=== PATIENT | female | born 1990 | race Caucasian/White ===

== ENCOUNTER 2018-07-31 17:00 | Emergency (ER) | payer OTHER ==
--- NOTE | 2018-07-31 17:12 | PDOC ---
Rapid Medical Evaluation Medical Evaluation: Allergies Allergy/AdvReac Type Severity Reaction Status Date / Time No Known Drug Allergies Allergy Verified 11/28/17 17:55 I have performed a brief in-person evaluation of this patient. The patient presents with a chief complaint of: Abdominal cramping and vaginal bleeding from yesterday Currently 3-4 weeks ; (hx of 2 miscarriages in the past) Has not yet seen her OB for this Concerns for possible miscarriage; also r/o ectopic Plan: CBC, BMP, UA, Bhcg, T&S, pelvic ultrasound Patient refused pain meds in triage The patient will proceed to the ED for further evaluation. 07/31/18 17:09
[2018-07-31 17:13] VITALS: BP 124/67; PULSE 80; TEMP 97.9; BMI 33.0
[2018-07-31 17:47] LABS: EOS % 1.6 % (0-4.5); HEMATOCRIT 37.5 % (32.4-45.2); HEMOGLOBIN 12.8 GM/dL (10.7-15.3); MCH 30.6 pg (25.7-33.7); MCHC 34.2 g/dl (32.0-36.0); MEAN CELL VOLUME 89.4 fl (80-96); MEAN PLT VOLUME 7.3 fl (7.5-11.1); MONO % 5.8 % (3.8-10.2); NEUT % 62.6 % (42.8-82.8); PLATELET COUNT 344 K/MM3 (134-434); RBC 4.19 M/mm3 (3.60-5.2); RDW 12.9 % (11.6-15.6); WHITE BLOOD COUNT 7.3 K/mm3 (4.0-10.0)
--- NOTE | 2018-07-31 17:52 | PDOC ---
Attending Attestation - HPI HPI: 07/31/18 19:04 The patient is a 27 year old 5 week female A2, with no significant past medical history, who presents to the emergency department with, 2 days of vaginal bleeding with clots. Patient experienced two prior miscarriages. Allergies: NKDA LMP: 06/20/2018 Rh: Negative - Physicial Exam PE: 07/31/18 20:20 Constitutional: Awake, alert, oriented. No acute distress. Head: Normocephalic. Atraumatic Eyes: PERRL. EOMI. Conjunctivae are not pale. ENT: Mucous membranes are moist and intact. Posterior pharynx without exudates or erythema. Uvula midline. Neck: Supple. Full ROM. No lymphadenopathy. Cardiovascular: Regular rate. Regular rhythm. S1, S2 regular. Distal pulses are 2+ and symmetric. Pulmonary/Chest: No evidence of respiratory distress. Clear to auscultation bilaterally No wheezing, rales or rhonchi. Abdominal: Soft and non-distended. There is no tenderness. No rebound, guarding or rigidity. No organomegaly. No palpable masses. Good bowel sounds. Back: No CVA tenderness. Pelvic: Refer to resident exam. Musculoskeletal: No edema. No cyanosis. No clubbing. Full range of motion in all extremities. No calf tenderness. Radial/pedal pulses are intact and 2+ bilaterally Skin: Skin is warm and dry. No petechiae. No purpura. Neurological: Alert and oriented to person, place, and time. Cranial nerves II -XII are grossly intact. Normal speech. Strength is grossly symmetric. No sensory deficits. Psychiatric: Good eye contact. Normal interaction, affect and behavior. <Chadwick Gomez - Last Filed: 07/31/18 20:20> - Resident Resident Name: Reny Lepe - ED Attending Attestation I have performed the following: I have examined & evaluated the patient, The case was reviewed & discussed with the resident, I agree w/resident's findings & plan, Exceptions are as noted - Medical Decision Making 07/31/18 17:51 I, Dr. Kasey Mishra, DO, attest that this document has been prepared under my direction and personally reviewed by me in its entirety. I further attest, that it accurately reflects all work, treatment, procedures and medical decision -making performed by me. 07/31/18 19:40 a/p: 27yo female with vaginal bleeding -last menstrual cycle was 06/20 -bleeding and cramping yesterday - concern for passing clots and cramping -2 recent miscarriages in the last 10 months -pt has not seen a COMPRESSED GAS TESTER during this -concern for early preg vs threatened ab vs complete ab -will send labs, tvus -hx of Rh-, will need rhogam 07/31/18 19:42 beta 5.7 no iup on ultrasound, suspect complete ab over early preg will need repeat beta hcg in 48 hours ua pending will give rhogam 07/31/18 20:41 given rhogam ua negative will return to the ED for repeat beta in 48 hours stable for d/c to home <Kasey Mishra - Last Filed: 07/31/18 20:42> *DC/Admit/Observation/Transfer <Chadwick Gomez - Last Filed: 07/31/18 20:20> - Discharge Dispostion Decision to Admit order: No <Kasey Mishra - Last Filed: 07/31/18 20:42> Diagnosis at time of Disposition: Complete - Discharge Dispostion Disposition: HOME Condition at time of disposition: Stable - Referrals Referrals: Cj Power MD [Staff Physician] - - Patient Instructions Printed Discharge Instructions: DI for Threatened Additional Instructions: Please return to the ED for a repeat beta HCG in 48 hours. Please follow up with the pit tanner for further eval of your bleeding. Please return to the ED with any further concerns or complaints. Attestations - Attestations 07/31/18 19:04 Documentation prepared by Chadwick Gomez, acting as medical superintendent for Kasey Mishra DO. <Chadwick Gomez - Last Filed: 07/31/18 20:20>
[2018-07-31 18:12] LABS: ANION GAP 6 MMOL/L (8-16); BLOOD UREA NITROGEN 18 mg/dL (7-18); CALCIUM 9.1 mg/dL (8.5-10.1); CHLORIDE 104 mmol/L (98-107); CO2 27 mmol/L (21-32); CREATININE 0.9 mg/dL (0.55-1.3); GLUCOSE,RANDOM 100 mg/dL (74-106); POTASSIUM 3.7 mmol/L (3.5-5.1); SODIUM 138 mmol/L (136-145)
--- NOTE | 2018-07-31 18:13 | PDOC ---
History of Present Illness - General Chief Complaint: Vaginal Bleeding Stated Complaint: VAGINAL BLEEDING/4 WKS Time Seen by Provider: 07/31/18 17:21 Past History - Past Medical History Allergies/Adverse Reactions: Allergies Allergy/AdvReac Type Severity Reaction Status Date / Time No Known Drug Allergies Allergy Verified 07/31/18 17:10 Anemia: Yes Asthma: No Cancer: No Cardiac Disorders: No CVA: No COPD: No CHF: No DVT: No Dementia: No Diabetes: No GI Disorders: No Disorders: No HTN: No Hypercholesterolemia: No Liver Disease: No Seizures: No Thyroid Disease: No - Surgical History Abdominal Surgery: Yes (OOPHERECTOMY 2008/partial 2012) Appendectomy: No Cardiac Surgery: No Cholecystectomy: No Lung Surgery: No Neurologic Surgery: No Orthopedic Surgery: No - Reproductive History (#): 3 Para: 0 Therapeutic (s) & number: Yes (2 elective) Spontaneous : 2 - Suicide/Smoking/Psychosocial Hx Smoking Status: No Smoking History: Never smoked Number of Cigarettes Smoked Daily: 0 Hx Alcohol Use: Yes (OCCAS) Drug/Substance Use Hx: No Substance Use Type: None Hx Substance Use Treatment: No *Physical Exam - Vital Signs Last Vital Signs Temp Pulse Resp BP Pulse Ox 97.9 F 80 18 124/67 99 07/31/18 17:11 07/31/18 17:11 07/31/18 17:11 07/31/18 17:11 07/31/18 17:11 ED Treatment Course - LABORATORY CBC & Chemistry Diagram: 07/31/18 17:42 07/31/18 17:42 - ADDITIONAL ORDERS Additional order review: 07/31/18 17:42 RBC 4.19 MCV 89.4 MCHC 34.2 RDW 12.9 MPV 7.3 L Neutrophils % 62.6 Lymphocytes % 29.0 D Monocytes % 5.8 Eosinophils % 1.6 Basophils % 1.0 Medical Decision Making - Medical Decision Making 07/31/18 18:07 Patient is a 27 year old female (Rho negative, 2 spontaneous abortions), with past medical history of ovarian cyst s/p ? oophorectomy, presented with vaginal bleeding with passage of clots accompanied by abdominal pain that started yesterday. LMP was 06/20. Patient reported positive test twice. Denies fevers, chills, headache, dizziness, chest pain, palpitations, SOB , constipation, diarrhea, urinary symptoms. General: awake, alert, oriented, not in acute distress Head: no signs of head trauma HEENT: PERRLA, EOMI, sclerae anicteric, no nasal discharge, moist mucous membranes Neck: soft, supple, trachea midline, without LAD Lung: clear to auscultation bilaterally Heart: regular rate and rhythm, S1/S2 normal, no m,r,g Abdomen: soft, nontender, nondistended, NABS Speculum exam: blood pooling along vaginal vault, unable to clearly visualize cervix due to blood pooling IE: no cervical/adnexal tenderness, cervix soft, long, open DDx includes but not limited to , ectopic , fibroids CBC, CMp B-hCG TVS
[2018-07-31] MEDS ORDERED: RHO(D) IMMUNE GLOBULIN 1,500 UNIT DISP.SYRIN IM ONE (19:30)
[2018-07-31 20:13] LABS: URINE APPEARANCE SLCLOUDY; URINE BILIRUBIN NEGATIVE (<2.0 mg/dL); URINE COLOR YELLOW; URINE GLUCOSE (UA) NEGATIVE (NEGATIVE); URINE KETONE NEGATIVE (NEGATIVE); URINE LEUK ESTERASE NEGATIVE (NEGATIVE); URINE NITRITE NEGATIVE (NEGATIVE); URINE PROTEIN NEGATIVE (NEGATIVE); URINE UROBILINOGEN NEGATIVE mg/dL (0.2-1.0)
[2018-07-31 20:57] LABS: EPI CELLS FEW /HPF (FEW); URINE MUCUS RARE
--- NOTE | 2018-08-01 07:53 | PDOC ---
*Physical Exam - Vital Signs Last Vital Signs Temp Pulse Resp BP Pulse Ox 97.9 F 80 18 124/67 99 07/31/18 17:11 07/31/18 17:11 07/31/18 17:11 07/31/18 17:11 07/31/18 17:11 - Physical Exam Comments: 08/01/18 07:53 I received sign out from Dr. Casanova ED Treatment Course - LABORATORY CBC & Chemistry Diagram: 07/31/18 17:42 07/31/18 17:42 - ADDITIONAL ORDERS Additional order review: Laboratory Results 07/31/18 19:28 Urine Color Yellow Urine Appearance Slcloudy Urine pH 6.0 Ur Specific [place] 1.026 Urine Protein Negative Urine Glucose (UA) Negative Urine Ketones Negative Urine Blood 3+ H Urine Nitrite Negative Urine Bilirubin Negative Urine Urobilinogen Negative Ur Leukocyte Esterase Negative Urine WBC (Auto) 28 Urine RBC (Auto) 151 Ur Epithelial Cells Few Urine Mucus Rare 07/31/18 17:42 RBC 4.19 MCV 89.4 MCHC 34.2 RDW 12.9 MPV 7.3 L Neutrophils % 62.6 Lymphocytes % 29.0 D Monocytes % 5.8 Eosinophils % 1.6 Basophils % 1.0 - Medications Given in the ED: ED Medications Discontinued Medications Generic Name Dose Route Start Last Admin Trade Name Kera PRN Reason Stop Dose Admin Rho Immune Globulin 50 unit 07/31/18 19:30 07/31/18 20:49 Rhogam Plus IM 07/31/18 19:31 50 unit ONCE ONE Administration *DC/Admit/Observation/Transfer Diagnosis at time of Disposition: Complete - Discharge Dispostion Disposition: HOME Condition at time of disposition: Stable - Referrals Referrals: Cj Power MD [Staff Physician] - - Patient Instructions Printed Discharge Instructions: DI for Threatened Additional Instructions: Please return to the ED for a repeat beta HCG in 48 hours. Please follow up with the kitchen cleaner for further eval of your bleeding. Please return to the ED with any further concerns or complaints. - Post Discharge Activity
== END 2018-07-31 21:01 | disposition home or self-care (01) ==
LOC: JER 17:00
PROC: 3E0234Z Introduction of Serum, Toxoid and Vaccine into Muscle, Percutaneous Approach (ICD-10-PCS; principal; 2018-07-31)
DX: O26.891 Other specified pregnancy related conditions, first trimester (principal); O03.9 Complete or unspecified spontaneous abortion without complication; O36.0910 Maternal care for other rhesus isoimmunization, first trimester, not applicable or unspecified; Z3A.01 Less than 8 weeks gestation of pregnancy
CPT/HCPCS: 36415; 76817-TC; 80048; 81003; 81015; 84702; 85025; 86999; 87086; 99282-25; J1561

== ENCOUNTER 2019-04-19 17:53 | Inpatient (IN) | payer BC, OTHER ==
--- NOTE | 2019-04-19 18:14 | PDOC ---
Rapid Medical Evaluation Time Seen by Provider: 04/19/19 18:11 Medical Evaluation: Allergies Allergy/AdvReac Type Severity Reaction Status Date / Time No Known Drug Allergies Allergy Verified 07/31/18 17:10 04/19/19 18:11 HPI: c/o pain and swelling s/p liposuction and "Citizen [place] Butt Lift" c/o of B LE swelling had suurgery done in [place] PE: No gross deficits ORDERS: B LE doppler, labs Discharge Disposition - Diagnosis Pain - Referrals - Patient Instructions - Post Discharge Activity
[2019-04-19 18:18] VITALS: BMI 31.9
[2019-04-19 20:10] LABS: BASO % 0.6 % (0-2.0); EOS % 1.8 % (0-4.5); HEMOGLOBIN 7.4 GM/dL (10.7-15.3); LYMPH % 17.9 % (8-40); MCH 31.7 pg (25.7-33.7); MCHC 33.9 g/dl (32.0-36.0); MEAN CELL VOLUME 93.7 fl (80-96); MEAN PLT VOLUME 6.9 fl (7.5-11.1); MONO % 6.5 % (3.8-10.2); NEUT % 73.2 % (42.8-82.8); PLATELET COUNT 419 K/MM3 (134-434); RBC 2.35 M/mm3 (3.60-5.2); WHITE BLOOD COUNT 9.8 K/mm3 (4.0-10.0)
[2019-04-19 20:38] LABS: ALBUMIN 2.9 g/dl (3.4-5.0); BILIRUBIN,TOTAL 0.5 mg/dL (0.2-1); BLOOD UREA NITROGEN 12.1 mg/dL (7-18); CALCIUM 8.6 mg/dL (8.5-10.1); CREATININE 0.5 mg/dL (0.55-1.3); POTASSIUM 3.8 mmol/L (3.5-5.1); TOT PROT 5.8 g/dl (6.4-8.2)
[2019-04-19] MEDS ORDERED: SODIUM CHLORIDE 1,000 ML IV STA (21:20)
[2019-04-19] MEDS ORDERED: ACETAMINOPHEN 1000 MG/100 ML VIAL (NON FORMULARY) IVPB ONE (21:20)
[2019-04-19] MEDS ORDERED: VANCOMYCIN 1,250 MG in DEXTROSE 5%-WATER - 250 ML IVPB ONE (22:22)
[2019-04-19] MEDS ORDERED: PIPERACILLIN/TAZOB 3.375 GM 3.375 GM in DEXTROSE 5%-WATER - 50 ML IVPB ONE (22:23)
[2019-04-19 22:33] LABS: INR 0.97 (0.83-1.09); PROTHROMBIN TIME (PATIENT) 11.5 SEC (9.7-13.0)
[2019-04-19] MEDS ORDERED: morphine CARPU-JECT 4 MG/1 ML DISP.SYRIN IVPUSH ONE (22:34)
[2019-04-19] MEDS ORDERED: morphine SULFATE 4 MG/ML VIAL ONE (22:41)
[2019-04-19] MEDS ORDERED: ONDANSETRON 4 MG/2 ML VIAL ONE (22:50)
--- NOTE | 2019-04-19 23:15 | PDOC ---
History of Present Illness - General Chief Complaint: Wound Stated Complaint: INFECTION TO ABD REGION Time Seen by Provider: 04/19/19 18:11 History Source: Patient Exam Limitations: No Limitations - History of Present Illness Initial Comments: Pt is a 28 yo F, with PMH of ovarian cysts, who presents with pain and swelling to her buttocks, discharge to her drain sites, and vaginal discharge s/p [place] butt-lift, abdominal liposuction, and fat transfer done 04/13/2019 in [place]. Pt states she was discharged on the same day as the surgery, and was started on PO keflex 500 BID and PO xarelto. Pt flew back to [place] today. Pt states since that time she has noted bloody discharge in the drains (2 in lower abdomen draining; 2 posterior which have healed), and began noticing foul- smelling yellow drainage from the anterior incision/drain sites and from her vagina. Pt denies any fevers/chills, headache, vision changes, syncope, chest pain, palpitations, SOB, nausea/vomiting, abdominal pain, urinary symptoms, diarrhea/constipation, or leg swelling. Allergies: NKDA Social: Pt denies any cigarette, alcohol, or drug use. Pt denies any recent travel or sick contacts. Surgical: ovarian cyst removal; recent plastic surgery as above. Family: no relevant history. 04/19/19 23:18 Surgeon: Dr. Everett ([place]): [phone] 04/19/19 23:53 Past History - Travel Traveled outside of the country in the last 30 days: No Close contact w/someone who was outside of country & ill: No - Past Medical History Allergies/Adverse Reactions: Allergies Allergy/AdvReac Type Severity Reaction Status Date / Time No Known Drug Allergies Allergy Verified 04/19/19 18:12 Home Medications: Ambulatory Orders Ascorbic Acid [Vitamin C -] 1,000 mg PO DAILY 04/19/19 Cephalexin Monohydrate [Keflex -] 500 mg PO BID 04/19/19 Ferrous Sulfate [Feosol] 325 mg PO TID 04/19/19 Hydrocodone/Acetaminophen [[place] 5-325 Tablet] 1 each PO ASDIR PRN 04/19/19 Rivaroxaban [Xarelto -] 10 mg PO DAILY 04/19/19 Anemia: Yes Asthma: No Cancer: No Cardiac Disorders: No CVA: No COPD: No CHF: No DVT: No Dementia: No Diabetes: No GI Disorders: No Disorders: No HTN: No Hypercholesterolemia: No Liver Disease: No Seizures: No Thyroid Disease: No - Surgical History Abdominal Surgery: Yes (OOPHERECTOMY 2008/partial 2012) Appendectomy: No Cardiac Surgery: No Cholecystectomy: No Lung Surgery: No Neurologic Surgery: No Orthopedic Surgery: No - Reproductive History (#): 3 Para: 0 Therapeutic (s) & number: Yes (2 elective) Spontaneous : 2 - Suicide/Smoking/Psychosocial Hx Smoking Status: No Smoking History: Never smoked Number of Cigarettes Smoked Daily: 0 Hx Alcohol Use: Yes (OCCAS) Drug/Substance Use Hx: No Substance Use Type: None Hx Substance Use Treatment: No Review of Systems - Review of Systems Able to Perform ROS?: Yes Is the patient limited Kazakh proficient: No Constitutional: Yes: Weight Stable. No: Chills, Diaphoresis, Fever, Loss of Appetite, Malaise, Weakness HEENTM: No: Blurred Vision, Double Vision, Nose Congestion, Throat Pain, Throat Swelling Respiratory: No: Cough, Orthopnea, Shortness of Breath Cardiac (ROS): No: Chest Pain, Edema, Irregular Heart Rate, Lightheadedness, Palpitations, Syncope, Chest Tightness ABD/GI: No: Constipated, Diarrhea, Nausea, Poor Appetite, Poor Fluid Intake, Vomiting, Abdominal cramping : No: Burning, Dysuria, Frequency, Pain, Urgency Musculoskeletal: Yes: See HPI, Muscle Pain. No: Back Pain, Joint Pain, Muscle Weakness Integumentary: Yes: Bruising (around incision sites with swelling). No: Rash Neurological: No: Numbness, Paresthesia, Weakness, Unsteady Gait, Dizziness Psychiatric: No: Sleep Pattern Change, Change in Appetite Endocrine: No: Increased Urine, Change in Weight Hematologic/Lymphatic: No: Anemia, Blood Clots, Easy Bleeding, Easy Bruising All Other Systems: Reviewed and Negative *Physical Exam - Vital Signs Last Vital Signs Temp Pulse Resp BP Pulse Ox 98.4 F 121 H 20 124/71 99 04/19/19 18:16 04/19/19 18:16 04/19/19 18:16 04/19/19 18:16 04/19/19 18:16 - Physical Exam Comments: Pt tachycardic, BP stable, pt afebrile. Pt appears very uncomfortable, difficulty with lying flat on the bed. Overweight body habitus. Pt alert and oriented x3. 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 No midline spinal tenderness, step-offs, or crepitus. Head normocephalic, atraumatic. Eyes PERRLA, EOMI. Oropharynx without erythema or exudates, no LAD b/l. No nasal congestion, hearing intact. Clear heart sounds, S1/S2, no JVD, b/l pedal edema, or heart murmur. Clear lung sounds, no respiratory distress, wheezes, crackles, or accessory muscle use. TTP around incision sites. 2 small incisions anterior lower abdomen (1 RLQ, 1 LLQ, with well-healing around drains, small serous drainage). 2 small incisions in lower back (1 L lower back, 1 R lower back, well healed, no drainage). No rebound, no guarding. Abdomen soft, non-distended, and with normoactive bowel sounds. Vaginal exam with physiologic discharge. No blood in the canal. Skin taut around hips and b/l thighs. Mild ecchymoses. Skin otherwise without jaundice or rash. 04/19/19 23:32 ED Treatment Course - LABORATORY CBC & Chemistry Diagram: 04/19/19 19:30 04/19/19 19:30 - ADDITIONAL ORDERS Additional order review: Laboratory Results 04/19/19 04/19/19 04/19/19 21:56 20:15 19:30 PT with INR 11.50 INR 0.97 Sodium 139 Potassium 3.8 Chloride 103 Carbon Dioxide 32 Anion Gap 4 L BUN 12.1 Creatinine 0.5 L Est GFR (CKD-EPI)AfAm 150.52 Est GFR (CKD-EPI)NonAf 129.87 Random Glucose 92 Calcium 8.6 Total Bilirubin 0.5 AST 49 H ALT 63 H Alkaline Phosphatase 49 Total Protein 5.8 L Albumin 2.9 L Urine HCG, Qual Negative 04/19/19 19:30 RBC 2.35 L MCV 93.7 MCHC 33.9 RDW 13.0 MPV 6.9 L Neutrophils % 73.2 Lymphocytes % 17.9 D Monocytes % 6.5 Eosinophils % 1.8 Basophils % 0.6 - RADIOLOGY Radiology Studies Ordered: Category Date Time Status ABDOMEN & PELVIS CT WITH CONTR [CT] Stat CT Scan 04/19/19 22:03 Ordered - Medications Given in the ED: ED Medications Discontinued Medications Generic Name Dose Route Start Last Admin Trade Name Kera PRN Reason Stop Dose Admin Acetaminophen 1,000 mg 04/19/19 21:20 04/19/19 22:14 Ofirmev Injection - IVPB 04/19/19 21:21 1,000 mg ONCE ONE Administration Sodium Chloride 1,000 mls @ 1,000 mls/hr 04/19/19 21:20 04/19/19 22:13 Normal Saline - IV 04/19/19 22:19 1,000 mls/hr ASDIR STA Administration Morphine Sulfate 4 mg 04/19/19 22:34 04/19/19 23:03 Morphine Injection - IVPUSH 04/19/19 22:35 4 mg ONCE ONE Administration Medical Decision Making - Medical Decision Making Pt was seen at bedside, also will be seen by attending Dr. Valencia. Pt presenting with complaints of drainage from her vagina and incision sites s/p plastic surgery. Vaginal exam showed no active discharge at this time. Will evaluate with CT scan of abdomen/pelvis, LE doppler, and transvaginal US to evaluate for uterine rupture/perforation vs DVT. Sent pre-op labs. Provided IV vanc, zosyn, ofirmev, 1 L IV NS, 4 mg IV morphine, and 4 mg IV zofran for improvement of pain, nausea, and abx coverage. Will continue to reassess pt and monitor for symptomatic improvement. ECG: sinus tachycardia, intervals WNL (HR 126, VT 128, QRS 66, QTc 457). No TWIs or significant ST segment changes. No significant changes from prior ECG. Pt taken for CT and US scans. 04/19/19 23:41 Pt endorsed to night team 04/19/19 23:53 *DC/Admit/Observation/Transfer Diagnosis at time of Disposition: Pain - Referrals Referrals: Kendall Jose [Primary Care Provider] - - Patient Instructions - Post Discharge Activity
[2019-04-19 23:26] LABS: URINE APPEARANCE CLEAR; URINE BILIRUBIN NEGATIVE (NEGATIVE); URINE COLOR YELLOW; URINE GLUCOSE (UA) NEGATIVE (NEGATIVE); URINE KETONE NEGATIVE (NEGATIVE); URINE LEUK ESTERASE NEGATIVE (NEGATIVE); URINE NITRITE NEGATIVE (NEGATIVE); URINE PROTEIN NEGATIVE (NEGATIVE); URINE UROBILINOGEN 0.2 mg/dL (0.2-1.0)
[2019-04-19] MEDS ORDERED: ONDANSETRON 4 MG/2 ML VIAL IVPUSH ONE (23:42)
--- NOTE | 2019-04-19 23:45 | PDOC ---
Documentation entered by Artie Castaneda SCRIBE, acting as scribe for Griselda Valencia DO. Griselda Valencia DO: This documentation has been prepared by the Leonel brown Elijah, SCRIBE, under my direction and personally reviewed by me in its entirety. I confirm that the documentation accurately reflects all work , treatment, procedures, and medical decision making performed by me. Attending Attestation - Resident Resident Name: Marta Fink - ED Attending Attestation I have performed the following: I have examined & evaluated the patient, The case was reviewed & discussed with the resident, I agree w/resident's findings & plan - HPI HPI: 04/19/19 22:04 Patient is a 28 year old female with a significant past medical history of ovarian cyst who presents to the ED with complications s/p 'English Butt Lift ' that was done on April 13. Patient noticed pain and odd color drainage at the TALIA drain. Patient noticed a smell at the site where she had pain which prompted the visit to the ED. Allergies: NKA PCP: Dr. Jose - Physicial Exam PE: 04/19/19 22:08 Agree with Resident's exam. - Medical Decision Making 04/19/19 23:14 28-year-old female status post liposuction and English but left now with increasing pain and vaginal odor Plan for CT scan of the abdomen and pelvis with IV contrast as well as pelvic ultrasound to evaluate for possible uterine rupture versus seromas versus abscess versus hematoma Antibiotics administered in the emergency department Plan for when necessary plastics consultation and likely admission
[2019-04-20] MEDS ORDERED: PIPERACILLIN/TAZOB 3.375 GM 3.375 GM/50 ML BAG IVPB ONE (00:28)
[2019-04-20] MEDS ORDERED: VANCOMYCIN 500 MG VIAL (RESTRICTED TO ID ONLY) ONE (00:30)
--- NOTE | 2019-04-20 00:58 | PDOC ---
*Physical Exam - Vital Signs Last Vital Signs Temp Pulse Resp BP Pulse Ox 98.4 F 121 H 20 124/71 99 04/19/19 18:16 04/19/19 18:16 04/19/19 18:16 04/19/19 18:16 04/19/19 18:16 ED Treatment Course - LABORATORY CBC & Chemistry Diagram: 04/19/19 19:30 04/19/19 19:30 - ADDITIONAL ORDERS Additional order review: Laboratory Results 04/19/19 04/19/19 04/19/19 23:00 21:56 21:56 PT with INR 11.50 INR 0.97 Sodium Potassium Chloride Carbon Dioxide Anion Gap BUN Creatinine Est GFR (CKD-EPI)AfAm Est GFR (CKD-EPI)NonAf Random Glucose Calcium Total Bilirubin AST ALT Alkaline Phosphatase Total Protein Albumin Urine Color Yellow Urine Appearance Clear Urine pH 6.0 Ur Specific [place] 1.011 Urine Protein Negative Urine Glucose (UA) Negative Urine Ketones Negative Urine Blood Negative Urine Nitrite Negative Urine Bilirubin Negative Urine Urobilinogen 0.2 Ur Leukocyte Esterase Negative Urine HCG, Qual Blood Type O NEGATIVE Antibody Screen Negative Crossmatch See Detail 04/19/19 04/19/19 20:15 19:30 PT with INR INR Sodium 139 Potassium 3.8 Chloride 103 Carbon Dioxide 32 Anion Gap 4 L BUN 12.1 Creatinine 0.5 L Est GFR (CKD-EPI)AfAm 150.52 Est GFR (CKD-EPI)NonAf 129.87 Random Glucose 92 Calcium 8.6 Total Bilirubin 0.5 AST 49 H ALT 63 H Alkaline Phosphatase 49 Total Protein 5.8 L Albumin 2.9 L Urine Color Urine Appearance Urine pH Ur Specific [place] Urine Protein Urine Glucose (UA) Urine Ketones Urine Blood Urine Nitrite Urine Bilirubin Urine Urobilinogen Ur Leukocyte Esterase Urine HCG, Qual Negative Blood Type Antibody Screen Crossmatch 04/19/19 19:30 RBC 2.35 L MCV 93.7 MCHC 33.9 RDW 13.0 MPV 6.9 L Neutrophils % 73.2 Lymphocytes % 17.9 D Monocytes % 6.5 Eosinophils % 1.8 Basophils % 0.6 - Medications Given in the ED: ED Medications Discontinued Medications Generic Name Dose Route Start Last Admin Trade Name Freq PRN Reason Stop Dose Admin Acetaminophen 1,000 mg 04/19/19 21:20 04/19/19 22:14 Ofirmev Injection - IVPB 04/19/19 21:21 1,000 mg ONCE ONE Administration Sodium Chloride 1,000 mls @ 1,000 mls/hr 04/19/19 21:20 04/19/19 22:13 Normal Saline - IV 04/19/19 22:19 1,000 mls/hr ASDIR STA Administration Vancomycin HCl 1,250 mg/ 250 mls @ 166.667 mls/hr 04/19/19 22:22 04/20/19 00: 48 Dextrose IVPB 04/19/19 23:51 166.667 mls/hr ONCE ONE Administration Protocol Piperacillin Sod/Tazobactam 50 mls @ 100 mls/hr 04/19/19 22:23 04/20/19 00:36 Sod 3.375 gm/ Dextrose IVPB 04/19/19 22:52 100 mls/hr ONCE ONE Administration Protocol Morphine Sulfate 4 mg 04/19/19 22:34 04/19/19 23:03 Morphine Injection - IVPUSH 04/19/19 22:35 4 mg ONCE ONE Administration Ondansetron HCl 4 mg 04/19/19 23:42 04/19/19 22:52 Zofran Injection IVPUSH 04/19/19 23:43 4 mg NOW ONE Administration Medical Decision Making - Medical Decision Making 04/20/19 00:57 Scattered areas of subcutaneous emphysema mid and lower back, probably related to recent surgery. Subcutaneous edema. Two percutaneous drainage catheters entering left and right lower quadrants, respectively, and each terminating in right upper quadrant abdominal wall. No abscess or focal fluid collection. No bowel obstruction, colitis, diverticulitis, or free air. Normal appendix. Unremarkable pancreas, kidneys and gallbladder. Hepatomegaly. 2.7 cm right ovarian cyst. Small simple physiologic free fluid right adnexa and right posterior cul-de-sac. Possible small nabothian cyst in cervix versus fibroid in lower uterine segment. Vagina somewhat obscured by artifact but grossly unremarkable 04/20/19 03:04 Negative TVUS [facility] called to transfer patient. Dr. Raman, plastic surgeon at [facility] refused transfer, stating that the patient is fine from a surgical standpoint, nothing to do/. Will keep the patient in our ED until morning, ED OBS admit to the hospitalist team and have her be seen by our plastic surgeon in the morning. *DC/Admit/Observation/Transfer Diagnosis at time of Disposition: Pain - Discharge Dispostion Decision to Admit order: Yes - Referrals Referrals: Kendall Jose [Primary Care Provider] - - Patient Instructions - Post Discharge Activity
--- NOTE | 2019-04-20 03:29 | PDOC ---
*Physical Exam - Vital Signs Last Vital Signs Temp Pulse Resp BP Pulse Ox 98.4 F 121 H 20 124/71 99 04/19/19 18:16 04/19/19 18:16 04/19/19 18:16 04/19/19 18:16 04/19/19 18:16 ED Treatment Course - LABORATORY CBC & Chemistry Diagram: 04/21/19 06:35 04/21/19 06:35 - ADDITIONAL ORDERS Additional order review: Laboratory Results 04/19/19 04/19/19 04/19/19 23:00 21:56 21:56 PT with INR 11.50 INR 0.97 Sodium Potassium Chloride Carbon Dioxide Anion Gap BUN Creatinine Est GFR (CKD-EPI)AfAm Est GFR (CKD-EPI)NonAf Random Glucose Calcium Total Bilirubin AST ALT Alkaline Phosphatase Total Protein Albumin Urine Color Yellow Urine Appearance Clear Urine pH 6.0 Ur Specific [place] 1.011 Urine Protein Negative Urine Glucose (UA) Negative Urine Ketones Negative Urine Blood Negative Urine Nitrite Negative Urine Bilirubin Negative Urine Urobilinogen 0.2 Ur Leukocyte Esterase Negative Urine HCG, Qual Blood Type O NEGATIVE Antibody Screen Negative Crossmatch See Detail 04/19/19 04/19/19 20:15 19:30 PT with INR INR Sodium 139 Potassium 3.8 Chloride 103 Carbon Dioxide 32 Anion Gap 4 L BUN 12.1 Creatinine 0.5 L Est GFR (CKD-EPI)AfAm 150.52 Est GFR (CKD-EPI)NonAf 129.87 Random Glucose 92 Calcium 8.6 Total Bilirubin 0.5 AST 49 H ALT 63 H Alkaline Phosphatase 49 Total Protein 5.8 L Albumin 2.9 L Urine Color Urine Appearance Urine pH Ur Specific [place] Urine Protein Urine Glucose (UA) Urine Ketones Urine Blood Urine Nitrite Urine Bilirubin Urine Urobilinogen Ur Leukocyte Esterase Urine HCG, Qual Negative Blood Type Antibody Screen Crossmatch 04/19/19 19:30 RBC 2.35 L MCV 93.7 MCHC 33.9 RDW 13.0 MPV 6.9 L Neutrophils % 73.2 Lymphocytes % 17.9 D Monocytes % 6.5 Eosinophils % 1.8 Basophils % 0.6 - RADIOLOGY Radiology Studies Ordered: Category Date Time Status TRANSVAGINAL ULTRASOUND US [US] Stat Ultrasound 04/20/19 22:03 Taken - Medications Given in the ED: ED Medications Discontinued Medications Generic Name Dose Route Start Last Admin Trade Name Freq PRN Reason Stop Dose Admin Acetaminophen 1,000 mg 08/12/19 21:20 04/19/19 22:14 Ofirmev Injection - IVPB 04/19/19 21:21 1,000 mg ONCE ONE Administration Sodium Chloride 1,000 mls @ 1,000 mls/hr 04/19/19 21:20 04/19/19 22:13 Normal Saline - IV 04/19/19 22:19 1,000 mls/hr ASDIR STA Administration Vancomycin HCl 1,250 mg/ 250 mls @ 166.667 mls/hr 04/19/19 22:22 04/20/19 00: 48 Dextrose IVPB 04/19/19 23:51 166.667 mls/hr ONCE ONE Administration Protocol Piperacillin Sod/Tazobactam 50 mls @ 100 mls/hr 04/19/19 22:23 04/20/19 00:36 Sod 3.375 gm/ Dextrose IVPB 04/19/19 22:52 100 mls/hr ONCE ONE Administration Protocol Morphine Sulfate 4 mg 04/19/19 22:34 04/19/19 23:03 Morphine Injection - IVPUSH 04/19/19 22:35 4 mg ONCE ONE Administration Ondansetron HCl 4 mg 04/19/19 23:42 04/19/19 22:52 Zofran Injection IVPUSH 04/19/19 23:43 4 mg NOW ONE Administration *DC/Admit/Observation/Transfer Diagnosis at time of Disposition: Intractable pain Anemia Qualifiers: Anemia type: unspecified type Qualified Code(s): D64.9 - Anemia, unspecified - Discharge Dispostion Disposition: AGAINST MEDICAL ADVICE Condition at time of disposition: Guarded Decision to Admit order: Yes - Referrals - Patient Instructions - Post Discharge Activity
[2019-04-20] MEDS ORDERED: SODIUM CHLORIDE 0.9% 500 ML INFUS.BAG IV ONE (03:30)
[2019-04-20 04:21] LABS: BASO % 0.6 % (0-2.0); EOS % 1.5 % (0-4.5); LYMPH % 20.9 % (8-40); MCH 31.4 pg (25.7-33.7); MCHC 33.3 g/dl (32.0-36.0); MEAN CELL VOLUME 94.5 fl (80-96); MEAN PLT VOLUME 7.1 fl (7.5-11.1); MONO % 4.5 % (3.8-10.2); NEUT % 72.5 % (42.8-82.8); PLATELET COUNT 399 K/MM3 (134-434); RBC 2.16 M/mm3 (3.60-5.2); RDW 13.4 % (11.6-15.6)
[2019-04-20 04:38] LABS: HEMATOCRIT 20.4 % (32.4-45.2); HEMOGLOBIN 6.8 GM/dL (10.7-15.3)
[2019-04-20] MEDS ORDERED: oxyCODONE HCL 5 MG TABLET PO PRN (05:08)
[2019-04-20] MEDS ORDERED: ACETAMINOPHEN 325 MG TABLET (FP) PO PRN ×2 (05:08→12:29)
--- NOTE | 2019-04-20 05:10 | HP ---
CHIEF COMPLAINT:c/o pain and swelling s/p liposuction and "Burmese Butt Lift" c/o of B LE swelling had suurgery done in [place] PCP: Dr. Madrid HISTORY OF PRESENT ILLNESS: 28 yo F, with PMH of ovarian cysts,Anemia who arrived to ED with pain and swelling to her buttocks, discharge to her drain sites, and vaginal discharge s/p Burmese butt-lift, abdominal liposuction, and fat transfer done 04/13/2019 in [place]. Patient states she was discharged on the same day as the surgery, and was started on PO keflex 500 BID and PO xarelto. Pt flew back to [place] today. Pt states since that time she has noted bloody discharge in the drains (2 in lower abdomen draining; 2 posterior which have healed), and began noticing foul-smelling yellow drainage from the anterior incision/drain sites and from her vagina. Pt denies any fevers/chills, headache, vision changes, syncope, chest pain, palpitations, SOB, nausea/vomiting, abdominal pain, urinary symptoms, diarrhea/ constipation, or leg swelling. ER course was notable for: ECG: sinus tachycardia, intervals WNL Negative TVUS CT scan of abdomen/pelvis Provided in ED: IV vanc, zosyn, ofirmev, 1 L IV NS, 4 mg IV morphine, and [address] Raman, plastic surgeon at [facility] refused transfer, stable from sx standpoint follow up plastic suregry in AM Recent Travel: [place] No travel outside the country PAST MEDICAL HISTORY: Anemia PAST SURGICAL HISTORY: OOPHERECTOMY 2008/partial 2012; recent plastic surgery (s /p Burmese butt-lift, abdominal liposuction) - Reproductive History (#): 3 Para: 0 Therapeutic (s) & number: Yes (2 elective) Spontaneous : 2 Social History: Smoking:No Alcohol:No Drugs: No Family History: Father ( HTN, HLD, DM), Mother ( thyroid Ca) Allergies: No Known Drug Allergies Allergy (Verified 04/20/19 03:18) HOME MEDICATIONS: Home Medications Medication Instructions Recorded Ascorbic Acid [Vitamin C -] 1,000 mg PO DAILY 04/19/19 Cephalexin Monohydrate [Keflex -] 500 mg PO BID 04/19/19 Ferrous Sulfate [Feosol] 325 mg PO TID 04/19/19 Hydrocodone/Acetaminophen [[place] 1 each PO ASDIR PRN 04/19/19 5-325 Tablet] Rivaroxaban [Xarelto -] 10 mg PO DAILY 04/19/19 REVIEW OF SYSTEMS Constitutional: YES: discomfort, pain with movement, changing positions HEENT: No: Blurred Vision, Double Vision, Nose Congestion, Throat Pain, Throat Swelling Respiratory: No: Cough, Orthopnea, Shortness of Breath Cardiac : No: Chest Pain, Edema, Irregular Heart Rate, Lightheadedness, Palpitations, Syncope, Chest Tightness GI: No: Constipated, Diarrhea, Nausea, Poor Appetite, Poor Fluid Intake, Vomiting, Abdominal cramping : No: Burning, Dysuria, Frequency, Pain, Urgency Musculoskeletal: No: Back Pain, Joint Pain, Muscle Weakness Integumentary: Yes: Bruising (around incision sites with swelling). No: Rash Neurological: No: Numbness, Paresthesia, Weakness, Unsteady Gait, Dizziness Psychiatric: No: Sleep Pattern Change, Change in Appetite Hematologic/Lymphatic: No: Blood Clots, Easy Bleeding, Easy Bruising PHYSICAL EXAMINATION Vital Signs - 24 hr 04/19/19 18:16 Temperature 98.4 F Pulse Rate 121 H Respiratory 20 Rate Blood Pressure 124/71 O2 Sat by Pulse 99 Oximetry (%) GENERAL: Awake, alert, appears uncomfortable, difficulty with lying flat, turning while on the bed. HEENT: NC/AT, EOMI, PERRLA, No JVD LUNGS: Breath sounds equal, clear to auscultation bilaterally. No wheezes, and no crackles. No accessory muscle use. HEART: Regular rate and rhythm, normal S1 and S2 without murmur, rub or gallop. ABDOMEN: TTP around incision sites. 2 small incisions anterior lower abdomen, 2 small incisions in lower back; No rebound, no guarding. Abdomen soft, non- distended, and with normoactive bowel sounds. : no vaginal discharge MUSCULOSKELETAL: Normal range of motion at all joints. No bony deformities or tenderness. NEUROLOGICAL: Cranial nerves II-XII intact. Normal speech. Normal gait. PSYCHIATRIC: Cooperative. Good eye contact. Appropriate mood and affect. SKIN: Warm, dry; Skin taut around hips and b/l thighs. Mild ecchymoses Laboratory Results - last 24 hr 04/19/19 04/19/19 04/19/19 19:30 19:30 20:15 WBC 9.8 RBC 2.35 L Hgb 7.4 L Hct 22.0 L D MCV 93.7 MCH 31.7 MCHC 33.9 RDW 13.0 Plt Count 419 D MPV 6.9 L Absolute Neuts (auto) 7.2 Neutrophils % 73.2 Lymphocytes % 17.9 D Monocytes % 6.5 Eosinophils % 1.8 Basophils % 0.6 Nucleated RBC % 0 PT with INR INR Sodium 139 Potassium 3.8 Chloride 103 Carbon Dioxide 32 Anion Gap 4 L BUN 12.1 Creatinine 0.5 L Est GFR (CKD-EPI)AfAm 150.52 Est GFR (CKD-EPI)NonAf 129.87 Random Glucose 92 Calcium 8.6 Total Bilirubin 0.5 AST 49 H ALT 63 H Alkaline Phosphatase 49 Total Protein 5.8 L Albumin 2.9 L Urine Color Urine Appearance Urine pH Ur Specific [place] Urine Protein Urine Glucose (UA) Urine Ketones Urine Blood Urine Nitrite Urine Bilirubin Urine Urobilinogen Ur Leukocyte Esterase Urine HCG, Qual Negative Blood Type Antibody Screen Crossmatch 04/19/19 04/19/19 04/19/19 21:56 21:56 23:00 WBC RBC Hgb Hct MCV MCH MCHC RDW Plt Count MPV Absolute Neuts (auto) Neutrophils % Lymphocytes % Monocytes % Eosinophils % Basophils % Nucleated RBC % PT with INR 11.50 INR 0.97 Sodium Potassium Chloride Carbon Dioxide Anion Gap BUN Creatinine Est GFR (CKD-EPI)AfAm Est GFR (CKD-EPI)NonAf Random Glucose Calcium Total Bilirubin AST ALT Alkaline Phosphatase Total Protein Albumin Urine Color Yellow Urine Appearance Clear Urine pH 6.0 Ur Specific [place] 1.011 Urine Protein Negative Urine Glucose (UA) Negative Urine Ketones Negative Urine Blood Negative Urine Nitrite Negative Urine Bilirubin Negative Urine Urobilinogen 0.2 Ur Leukocyte Esterase Negative Urine HCG, Qual Blood Type O NEGATIVE Antibody Screen Negative Crossmatch See Detail ASSESSMENT/PLAN: 28 year old female with a significant past medical history of ovarian cyst, Anemia who presents to the ED with complications s/p 'Burmese Butt Lift' that was done on April 13. Arrived to ED due to increase pain and vaginal odd , change of color drainage at the TALIA drain. #s/p Burmese butt-lift, abdominal liposuction # pain # Anemia -Abd/pelvis CT:no abscessor focal fluid collection.no bowel obstruction, colitis , diverticulitis, or free air. Normal appendix. 2.7 cm right ovarian cyst. Small simple physiologic free fluid right adnexa and right posterior cul-de-sac. Possible small nabothian cyst in cervix versus fibroid in lower uterine segment. - Negative TVUS - follow up plastic sx in AM - Continue with pain management - start clindamycin 300 mg IV q 6hours for 7 days - will need blood transfusion; Monitor H/H - follow up STI panel - follow up urine, wound cx Problem List - Problem (1) S/P cosmetic plastic surgery Code(s): Z98.890 - OTHER SPECIFIED POSTPROCEDURAL STATES (2) Encounter for cosmetic surgery following healed injury or operation Code(s): Z42.8 - ENCNTR FOR OTH PLAST/RECNST SURG FOL MED PROC OR HEAL INJURY (3) Pain at surgical site Code(s): G89.18 - OTHER ACUTE POSTPROCEDURAL PAIN (4) Anemia Code(s): D64.9 - ANEMIA, UNSPECIFIED Qualifiers: Anemia type: unspecified type Qualified Code(s): D64.9 - Anemia, unspecified (5) Intractable pain Code(s): R52 - PAIN, UNSPECIFIED Visit type - Emergency Visit Emergency Visit: Yes ED Registration Date: 04/20/19 Care time: The patient presented to the Emergency Department on the above date and was hospitalized for further evaluation of their emergent condition. - New Patient This patient is new to me today: Yes Date on this admission: 04/20/19 - Critical Care Critical Care patient: No
[2019-04-20] MEDS ORDERED: PT OWN MED DRAWER 7, Y5N ONE ×3 (08:35→15:17)
[2019-04-20] MEDS: CLINDAMYCIN 300 MG PREMIX IVPB 300 MG/50 ML BAG IVPB SCH ×2 (09:00→15:21)
[2019-04-20 10:39] LABS: ANISOCYTOSIS 1+; MACROCYTOSIS 1+; PLATELET ESTIMATE NORMAL
[2019-04-20 10:44] LABS: MACROCYTOSIS 1+; OVALOCYTE 1+; PLATELET ESTIMATE NORMAL
[2019-04-20] MEDS: LACTOBACILLUS ACIDOPHILUS 1 TABLET PO SCH (10:59)
--- NOTE | 2019-04-20 11:25 | EKG ---
Test Reason : Blood Pressure : / mmHG Vent. Rate : 126 BPM Atrial Rate : 126 BPM P-R Int : 128 ms QRS Dur : 066 ms QT Int : 316 ms P-R-T Axes : 065 072 045 degrees QTc Int : 457 ms SINUS TACHYCARDIA OTHERWISE NORMAL ECG WHEN COMPARED WITH ECG OF 07-MAY-2013 13:00, VENT. RATE HAS INCREASED BY 63 BPM Confirmed by Henri Do MD ([id number]) on 04/20/2019 11:25:01 AM Referred By: Confirmed By:Henri Do MD
--- NOTE | 2019-04-20 11:41 | PN ---
Progress Note, Physician Chief Complaint: Anemia BLLE Wound infection s/p abdominoplasty History of Present Illness: NAD c/o of incisional surgical pain 2 abdominal drains draining moderate amount of serosanguineous fluid Received IV Vanco+ zosyn yesterday afebrile CT abd no abscess, just lot of post op edema Awaiting plastic surgery consult Drop in H/H this AM PRBC ordered yesterday was not given to the patient until this AM at 10 am - Current Medication List Current Medications: Active Medications Acetaminophen (Tylenol -) 650 mg PO Q4H PRN PRN Reason: PAIN OR FEVER Clindamycin Phosphate (Cleocin 300 Mg Premix Ivpb) 300 mg in 50 mls @ 100 mls/ hr IVPB Q6H-IV LARS Lactobacillus Acidophilus (Bacid -) 1 tab PO DAILY LARS Oxycodone HCl (Roxicodone -) 5 mg PO Q6H PRN PRN Reason: PAIN LEVEL 6-10 Polyethylene Glycol (Miralax (For Daily Use) -) 17 gm PO DAILY LARS - Objective Vital Signs: Vital Signs Temperature 97.9 F 04/20/19 06:27 Pulse Rate 112 H 04/20/19 06:27 Respiratory Rate 20 04/20/19 06:27 Blood Pressure 102/51 L 04/20/19 06:27 O2 Sat by Pulse Oximetry (%) 97 04/20/19 05:58 Constitutional: Yes: Well Nourished, No Distress, Calm Cardiovascular: Yes: Regular Rate and Rhythm Respiratory: Yes: Regular Gastrointestinal: Yes: Soft, Hypoactive Bowel Sounds, Tenderness (diffuse) Genitourinary: Yes: WNL Musculoskeletal: Yes: Muscle Weakness Extremities: Yes: WNL Edema: Yes Edema: LLE: 1+, RLE: 1+ Peripheral Pulses WNL: Yes Neurological: Yes: Alert, Oriented Psychiatric: Yes: Alert, Oriented Labs: CBC, BMP 04/20/19 04:04 04/19/19 19:30 INR, PTT INR 0.97 (0.83-1.09) 04/19/19 21:56 Problem List - Problems (1) Lower extremity edema Assessment/Plan: -U/S doppler negative -Elevate BLLE -albumin is low -will add prosource bid Code(s): R60.0 - LOCALIZED EDEMA (2) Anemia Assessment/Plan: -States she was anemic post op as well, she saw some blood when wiping after her last BM, however, she was straining to go to the bathroom due to constipation -Likely 2/2 to post op blood loss -2 U PRBC today -monitor labs closely, repeat in AM -No signs of overt bleeding -Check Iron, thyroid, B12, and stool OB Code(s): D64.9 - ANEMIA, UNSPECIFIED Qualifiers: Anemia type: unspecified type Qualified Code(s): D64.9 - Anemia, unspecified (3) S/P cosmetic plastic surgery Assessment/Plan: -Drains intact, no signs of infection at the site -continue to monitor -start clear liquid diet+ ensure -pt refused to turn over to examine the back Code(s): Z98.890 - OTHER SPECIFIED POSTPROCEDURAL STATES (4) Constipation Assessment/Plan: -Miralax daily -Avoid constipation Code(s): K59.00 - CONSTIPATION, UNSPECIFIED (5) Elevated liver enzymes Assessment/Plan: -mildly elevated -2/2 to acute infection? -monitor trend -CT abd/pelvis negative for any liver disease Code(s): R74.8 - ABNORMAL LEVELS OF OTHER SERUM ENZYMES Assessment/Plan See problem list Spoke to Dr Roel Camacho (Plastic Surgery in [place]) at to update on pt's condition. Secondary contact is TELLY Harkins at
[2019-04-20] MEDS: POLYETHYLENE GLYCOL 3350 119 GM BTL PO SCH (11:52)
[2019-04-20] MEDS ORDERED: traMADol HCL 50 MG TABLET PO PRN (12:24)
[2019-04-20] MEDS ORDERED: HYDROmorphone HCl 2 MG/ML VIAL IVPUSH PRN (12:26)
[2019-04-20] MEDS ORDERED: ONDANSETRON 4 MG/2 ML VIAL IVPUSH PRN (14:43)
--- NOTE | 2019-04-20 15:49 | PN ---
Progress Note (short form) - Note Progress Note: ID consult dictated imp/reccd 28 yo female s/p plastic surgery 04/13 in [place] she had liposuction and a congolese butt lift she was discharged on 04/16 from their care and took the airplane back on 04/18 she has not had any fever but has had increasing pain there was some drainage from arround one of the anterior ann drain sites she feels everything is tight and very painful received vancomycin and zosyn in ED last night now on clindamycin awaiting plastic surgery evaluation - there is no obvious cellulitis at any of the trochar sites or fluctuance to suggest abscess also ann fluid is serous- no signs of purulence will treat with clindamycin/ceftriaxone for skin coverage while awaiting plastic surgery guidance f/u cultures anemia- for transfusion Problem List - Problems (1) Pain at surgical site Code(s): G89.18 - OTHER ACUTE POSTPROCEDURAL PAIN (2) Anemia Code(s): D64.9 - ANEMIA, UNSPECIFIED Qualifiers: Anemia type: unspecified type Qualified Code(s): D64.9 - Anemia, unspecified
[2019-04-20 17:05] LABS: ALBUMIN 2.4 g/dl (3.4-5.0); BILIRUBIN,TOTAL 0.9 mg/dL (0.2-1); CALCIUM 7.7 mg/dL (8.5-10.1); CREATININE 0.5 mg/dL (0.55-1.3); POTASSIUM 3.9 mmol/L (3.5-5.1); TOT PROT 5.2 g/dl (6.4-8.2)
[2019-04-20] MEDS: AMINO ACIDS/PROTEIN HYDROLYS 30 ML LIQUID.PKT PO SCH (18:12)
--- NOTE | 2019-04-20 18:28 | CONSULT ---
Consult Consult Specialty:: Plastic Surgery - Past Medical History ...LMP: 04/12/19 ...: No Additional Medical History: none. surgical hx--laparotomy, salpingo-ophorectomy - Alcohol/Substance Use Hx Alcohol Use: Yes (OCCAS) - Smoking History Smoking history: Never smoked Aproximately how many cigarettes per day: 0 Home Medications - Allergies Allergies/Adverse Reactions: Allergies Allergy/AdvReac Type Severity Reaction Status Date / Time No Known Drug Allergies Allergy Verified 04/20/19 03:18 - Home Medications Home Medications: Ambulatory Orders Ascorbic Acid [Vitamin C -] 1,000 mg PO DAILY 04/19/19 Cephalexin Monohydrate [Keflex -] 500 mg PO BID 04/19/19 Ferrous Sulfate [Feosol] 325 mg PO TID 04/19/19 Hydrocodone/Acetaminophen [[place] 5-325 Tablet] 1 each PO ASDIR PRN 04/19/19 Rivaroxaban [Xarelto -] 10 mg PO DAILY 04/19/19 Physical Exam Vital Signs: Vital Signs Temperature 99.1 F 04/20/19 14:45 Pulse Rate 100 H 04/20/19 14:45 Respiratory Rate 18 04/20/19 14:45 Blood Pressure 105/59 L 04/20/19 14:45 O2 Sat by Pulse Oximetry (%) 99 04/20/19 09:00 Labs: CBC, BMP 04/20/19 04:04 04/20/19 15:15 Assessment/Plan 28 year old woman one week s/p circumferential liposuction with fat transfer to buttocks- patient states that she had about 4 liters of fat transferred. She presents with pain in the abdomen and back. Her HCT on admission was only 22 and she is now receiving a second unit of PRBC's. Physical exam shows multiple ecchymotic areas as expected. Two Jean Paul-Mullen drains are exiting the lower abdomen and it its difficult to see where they are directed. Patient states they have been draining each about 50cc per day. The buttocks are swollen but without pain or erythema, although very warm to touch. The abdomen and back are sore and irregular to touch with obvious irregularities. It is difficult to notice any subcutaneous fluid pockets although this is the sensation the patient describes. I am unfamiliar with the use of TALIA drains after liposuction and I suggest leaving them in for 24 hours while monitoring the patient. If drainage is minimal then I suggest removing these tomorrow. I would also suggest antibiotics. There is no no suggestion of blood within TALIA drains, and ecchymosis is not beyond expected as an explanation of the presumed blood loss. The procedure was a week ago so it's unlikely that the low HCT is only a result of surgical losses. If there is continued decreasing of HCT then a bleeding source must be identified. I would encourage ambulation with assistance as well, and application of RANDEE stockings.
--- NOTE | 2019-04-20 19:06 | CONS ---
DATE OF CONSULTATION: DATE OF DICTATION: 04/20/2019 INFECTIOUS DISEASE CONSULTATION REQUESTING PHYSICIAN: Tasha Madrid M.D. CONSULTING PHYSICIAN: Claudia Lin M.D. HISTORY OF PRESENT ILLNESS: This is a 28-year-old woman who is status post plastic surgery in April 13 in [place]. She had liposuction and a Estonian butt lift. She was discharged on April 16 from the care of the surgeons there, and she took the airplane back on April 18. She came back with 2 drains, which she was supposed to continue to keep in until the urine output diminished, at which time she was to remove them. As well she reported she was told she had a small opening in her back where she was supposed to continue to drain from. She has not had any fevers, but after coming back on the airplane she started having progressive discomfort. Everything is very tight and painful. She noted some drainage from around one of the anterior TALIA drains. There were no fevers, there were no chills. She went to see a massage person because she was told she needed a massage to help with the stiffness that was accompanying the procedure. The massage person sent her to the ER. She reported that she noted a foul smell from her vagina as well as from her armpits. She received vancomycin and Zosyn in the ER last night and now on clindamycin awaiting plastic surgery evaluation. PAST MEDICAL HISTORY: Notable for anemia. SURGICAL HISTORY: Oophorectomy in 2008 and a plastic surgery. SOCIAL HISTORY: She is . She has 1 child. She is employed. FAMILY HISTORY: Notable for hypertension, hyperlipidemia. Mother with thyroid cancer. HABITS: There is no history of any cigarette, alcohol, or substance use. REVIEW OF SYSTEMS: There is no fever or chills. She has no headaches. She has no chest pain. She has no shortness of breath. She has had no nausea, vomiting, urinary symptoms, diarrhea or constipation. Of note, her medications include vitamin C. She was discharged on Keflex which she was taking 500 p.o. b.i.d., ferrous sulfate 325 mg t.i.d., and Xarelto. Review of systems is as per HPI. PHYSICAL EXAMINATION: GENERAL: She is awake and alert. She has had no fevers. VITAL SIGNS: Temperature is 99.1 orally, pulse is 100, blood pressure 105/59, respiratory rate 18. She is saturating 99% on room air. HEENT: Normocephalic. Eyes are anicteric. NECK: Supple. LUNGS: Clear to auscultation. HEART: Tachycardic. SKIN: She has sites underneath her breasts that are healed. She has got trochar sites on her abdomen that are all healed as well as on her buttocks. There is no obvious erythema. There is no obvious fluctuance. She has 2 TALIA drains that have clear red fluid in them. There is no evidence of any purulence, and there is no associated odor. LABORATORY: White count is 10,000, hemoglobin is 6.8, platelets are 399. INR is normal. BUN and creatinine are 10 and 0.5. Urinalysis is negative. Urine test is negative. The urine culture and Gram stain of the cavity site where she noted some drainage is pending. Gram stain shows no organisms or polycytes. She had a CAT scan of her abdomen and pelvis done in the emergency room that noted extensive subcutaneous edema with air bubbles and 2 drainage catheters and a right ovarian cyst. There is no evidence of any abscess. She had duplex of her legs that were negative for DVT and a transvaginal sonogram that showed a small right ovarian cyst. IMPRESSION: 1. In summary, this is a young lady status post plastic surgery, awaiting plastic surgery evaluation. There is no obvious cellulitis at any of the trocar sites or fluctuance to suggest abscess. TALIA fluid is also serous. No signs of purulence. Will treat with clindamycin and ceftriaxone for skin coverage while awaiting plastic surgery guidance. Follow up cultures. 2. Anemia, she is scheduled for transfusion. CLAUDIA LIN M.D. [id number]
[2019-04-20] MEDS: CLINDAMYCIN 600MG PREMIX IVPB 600 MG/50 ML BAG IVPB SCH (21:12)
[2019-04-20] MEDS ORDERED: DEXTROSE 5%-WATER 100 ML IVPB ONE (21:32)
[2019-04-20] MEDS: CEFTRIAXONE 2 GM in DEXTROSE 5%-WATER 100 ML IVPB SCH (22:31)
[2019-04-21] MEDS: CLINDAMYCIN 600MG PREMIX IVPB 600 MG/50 ML BAG IVPB SCH ×3 (02:39→20:32)
[2019-04-21 07:29] LABS: BASO % 0.3 % (0-2.0); EOS % 2.1 % (0-4.5); HEMOGLOBIN 8.7 GM/dL (10.7-15.3); LYMPH % 15.2 % (8-40); MCH 31.7 pg (25.7-33.7); MCHC 34.8 g/dl (32.0-36.0); MEAN CELL VOLUME 91.2 fl (80-96); MEAN PLT VOLUME 6.9 fl (7.5-11.1); NEUT % 76.4 % (42.8-82.8); PLATELET COUNT 362 K/MM3 (134-434); RBC 2.75 M/mm3 (3.60-5.2); RDW 14.5 % (11.6-15.6); WHITE BLOOD COUNT 8.3 K/mm3 (4.0-10.0)
[2019-04-21 08:16] LABS: ALBUMIN 2.5 g/dl (3.4-5.0); BILIRUBIN,TOTAL 0.6 mg/dL (0.2-1); BLOOD UREA NITROGEN 10.3 mg/dL (7-18); CREATININE 0.5 mg/dL (0.55-1.3); TOT PROT 5.3 g/dl (6.4-8.2)
[2019-04-21] MEDS ORDERED: DEXTROSE 5%-WATER 100 ML IVPB ONE (10:17)
--- NOTE | 2019-04-21 10:50 | PN ---
Progress Note, Physician Chief Complaint: Anemia BLLE Wound infection s/p abdominoplasty History of Present Illness: NAD c/o of incisional surgical pain 2 abdominal drains draining moderate amount of serosanguineous fluid 30+20 ml overnight Received IV Vanco+ zosyn in ER afebrile CT abd no abscess, just lot of post op edema Received 2 units PRBC yesterday Seen by Plastic surgery, no surgical intervention recommended at this time H/H improved. However, Guaiac+. Liver enz mildly elevated. Iron profile, thyroid and B12 normal - Current Medication List Current Medications: Active Medications Acetaminophen (Tylenol -) 650 mg PO Q4H PRN PRN Reason: PAIN OR FEVER Amino Acids (Prosource No Carb Liquid Pkt) 30 ml PO BID@0800,1730 [facility] Last Admin: 04/20/19 18:12 Dose: 30 ml Hydromorphone HCl (Dilaudid Vial -) 1 mg IVPUSH Q4H PRN PRN Reason: PAIN LEVEL 7 - 10 Ceftriaxone Sodium 2 gm/ (Dextrose) 100 mls @ 200 mls/hr IVPB DAILY [facility]; Protocol Last Admin: 04/20/19 22:31 Dose: 200 mls/hr Clindamycin Phosphate (Cleocin 600 Mg Premix Ivpb -) 600 mg in 50 mls @ 100 mls /hr IVPB Q8H-IV [facility]; Protocol Last Admin: 04/21/19 02:39 Dose: 100 mls/hr Lactobacillus Acidophilus (Bacid -) 1 tab PO DAILY [facility] Last Admin: 04/20/19 10:59 Dose: 1 tab Ondansetron HCl (Zofran Injection) 4 mg IVPUSH Q8H PRN PRN Reason: NAUSEA Polyethylene Glycol (Miralax (For Daily Use) -) 17 gm PO DAILY [facility] Last Admin: 04/20/19 11:52 Dose: Not Given Tramadol HCl (Ultram -) 50 mg PO Q6H PRN PRN Reason: PAIN LEVEL 4 - 6 - Objective Vital Signs: Vital Signs Temperature 97.6 F 04/21/19 06:00 Pulse Rate 85 04/21/19 06:00 Respiratory Rate 20 04/21/19 06:00 Blood Pressure 100/55 L 04/21/19 06:00 O2 Sat by Pulse Oximetry (%) 98 04/20/19 21:00 Constitutional: Yes: Well Nourished, No Distress, Calm Cardiovascular: Yes: Regular Rate and Rhythm Respiratory: Yes: Regular Gastrointestinal: Yes: Normal Bowel Sounds, Tenderness (diffuse) Genitourinary: Yes: WNL Musculoskeletal: Yes: Muscle Weakness Extremities: Yes: WNL Edema: Yes (diffuse) Peripheral Pulses WNL: Yes Neurological: Yes: Alert, Oriented Psychiatric: Yes: Alert, Oriented Labs: CBC, BMP 04/21/19 06:35 04/21/19 06:35 INR, PTT INR 0.97 (0.83-1.09) 04/19/19 21:56 Problem List - Problems (1) Lower extremity edema Assessment/Plan: -U/S doppler negative -Elevate BLLE -albumin is low -will add prosource bid -Advance diet to high protein diet Code(s): R60.0 - LOCALIZED EDEMA (2) Anemia Assessment/Plan: -Improved today -Guaiac + -Will get GI consult -States she was anemic post op as well, she saw some blood when wiping after her last BM, however, she was straining to go to the bathroom due to constipation -monitor labs closely, repeat in AM -No signs of overt bleeding -Iron, thyroid, [id number] Code(s): D64.9 - ANEMIA, UNSPECIFIED Qualifiers: Anemia type: unspecified type Qualified Code(s): D64.9 - Anemia, unspecified (3) S/P cosmetic plastic surgery Assessment/Plan: -sitting in chair today -Drains intact, no signs of infection at the site -continue to monitor -Advance diet to high protein diet -Continue IV abx for now Code(s): Z98.890 - OTHER SPECIFIED POSTPROCEDURAL STATES (4) Constipation Assessment/Plan: -Miralax daily -Avoid constipation Code(s): K59.00 - CONSTIPATION, UNSPECIFIED (5) Elevated liver enzymes Assessment/Plan: -mildly elevated -2/2 to acute infection vs iv abx -monitor trend -CT abd/pelvis negative for any liver disease Code(s): R74.8 - ABNORMAL LEVELS OF OTHER SERUM ENZYMES Assessment/Plan See problem list Call placed to Dr Roel Camacho ([facility] in [place]) at [phone] to update on pt's condition. Secondary contact is TELLY Harkins at
[2019-04-21] MEDS: AMINO ACIDS/PROTEIN HYDROLYS 30 ML LIQUID.PKT PO SCH ×2 (11:18→20:31)
[2019-04-21] MEDS: LACTOBACILLUS ACIDOPHILUS 1 TABLET PO SCH (11:19)
[2019-04-21] MEDS: CEFTRIAXONE 2 GM in DEXTROSE 5%-WATER 100 ML IVPB SCH (11:20)
[2019-04-21] MEDS: POLYETHYLENE GLYCOL 3350 119 GM BTL PO SCH (11:21)
[2019-04-21 14:05] LABS: ANISOCYTOSIS 1+; MACROCYTOSIS 1+; PLATELET ESTIMATE NORMAL
--- NOTE | 2019-04-21 16:10 | CON.GI ---
Consult Consult Specialty:: Gastroenterology Referred by:: Ulysses Tomlinson Reason for Consultation:: Anemia, elevated LFTs - History of Present Illness Chief Complaint: Abdominal pain History of Present Illness: 28yo female h/o ovarian cysts presents with pain and swelling s/p Burkin[place] butt -lift, abdominal liposuction at outside facility asked to evaluate for anemia and elevated LFTs. Pt reports undergoing guamanian buttlift and abdominal liposuction in [place] on without immediate complications however noticed increased weakness, abdominal discomfort and purulent drainage at drain sites over the weekend. She returned to [place] on 04/18 with worsening symptoms prompting hospitalization. Pt noted to be anemic with episode of rectal bleeding therefore GI consulted. 2u prbc transfused yesterday. Elevated LFTs also noted. Pt reports constipation since the surgery with straining and hard stools, reporting streaks of bright blood mixed with stool and on toilet paper. States she was started on iron supplementation and course of keflex post surgery. Last episode yesterday, had 4 soft bms today without blood. States she had colonoscopy by Dr. Carrasco 1-2 years ago to evaluate abdominal pain reportedly normal (report not currently available). Has heavy menses for 4-5 days each cycle. Continues to report diffuse abdominal tenderness related to the liposuction, denies n/v, fever/chills. Denies prior h/o liver disease. Reports occasional social etoh consumption, denies recreational drug use. Hb ~12-13 and LFTs normal in 2018. - History Source History Provided By: Patient - Past Medical History ...LMP: 04/12/19 ...: No Additional Medical History: none. surgical hx--laparotomy, salpingo-ophorectomy - Alcohol/Substance Use Hx Alcohol Use: Yes (OCCAS) - Smoking History Smoking history: Never smoked Aproximately how many cigarettes per day: 0 Home Medications - Allergies Allergies/Adverse Reactions: Allergies Allergy/AdvReac Type Severity Reaction Status Date / Time No Known Drug Allergies Allergy Verified 04/20/19 03:18 - Home Medications Home Medications: Ambulatory Orders Ascorbic Acid [Vitamin C -] 1,000 mg PO DAILY 04/19/19 Cephalexin Monohydrate [Keflex -] 500 mg PO BID 04/19/19 Ferrous Sulfate [Feosol] 325 mg PO TID 04/19/19 Hydrocodone/Acetaminophen [[place] 5-325 Tablet] 1 each PO ASDIR PRN 04/19/19 Rivaroxaban [Xarelto -] 10 mg PO DAILY 04/19/19 Review of Systems - Review of Systems Constitutional: reports: Weakness Cardiovascular: reports: No Symptoms, Chest Pain Respiratory: reports: No Symptoms Gastrointestinal: reports: Abdominal Pain, Constipation, Rectal Bleeding Physical Exam-GI Vital Signs: Vital Signs Temperature 98.0 F 04/21/19 14:19 Pulse Rate 99 H 04/21/19 14:19 Respiratory Rate 18 04/21/19 14:19 Blood Pressure 108/59 L 04/21/19 14:19 O2 Sat by Pulse Oximetry (%) 98 04/20/19 21:00 Constitutional: Yes: Well Nourished, No Distress, Calm Cardiovascular: Yes: WNL, Regular Rate and Rhythm Respiratory: Yes: WNL, Regular, CTA Bilaterally ...Palpate: Yes: Other (Abd soft diffusely tender on palpation, mild guarding, no rebound or rigidity +midline healed incisional scar, two TALIA drains in place with serosanguineous fluid. No obvious surrounding erythema. Rectal exam refused due to pt discomfort at surgical sites) Labs: CBC, BMP 04/21/19 06:35 04/21/19 06:35 INR, PTT INR 0.97 (0.83-1.09) 04/19/19 21:56 Imaging - Results Cat Scan: Report Reviewed, Image Reviewed Problem List - Problems (1) Anemia Assessment/Plan: 28yo female h/o ovarian cysts presents with pain and swelling s/p Burkin[place] butt -lift, abdominal liposuction at outside facility in [place] on 04/13/19 asked to evaluate for anemia (normocytic) with positive FOBT and elevated LFTs. Serosanguineous discharge/fluid seen at TALIA drains. Constipation and intermittent rectal bleeding also reported. CT imaging revealing extensive s/c edema with air bubbles and 2.7cm right ovarian cyst otherwise no acute findings. Etiology for anemia likely multifactorial in setting of recent cosmetic abdominal surgery with some bloody drainage from TALIA drains and intermittent rectal bleeding, suspect hemorrhoidal. Appropriate response to prbc transfusion noted. No evidence of iron deficiency though recent supplementation noted. -Continue to monitor Hb and for evidence of bleeding -Transfuse as needed to maintain Hb >7 -Would defer endoscopic evaluation at this time in setting of recent cosmetic surgery and concern for underlying infection, though pt should resume outpatient GI follow up to reassess once clinically improved and acute issues have resolved -Continue miralax daily -If further episodes of rectal bleeding with drop in Hb please notify GI for re- evaluation Code(s): D64.9 - ANEMIA, UNSPECIFIED Qualifiers: Anemia type: unspecified type Qualified Code(s): D64.9 - Anemia, unspecified (2) Elevated liver enzymes Assessment/Plan: Mild transaminase elevation noted. Normal in 2018. Suspect drug induced liver injury in setting of recent antibiotics (keflex, clindamycin, rocephin). -Continue to closely monitor LFT trend -Obtain Abd US to further evaluate -Check hepatitis serologies -If LFTs continue to increase would need to consider change in antibiotics -Avoid nonessential hepatotoxic medications Code(s): R74.8 - ABNORMAL LEVELS OF OTHER SERUM ENZYMES
[2019-04-21 18:07] VITALS: BP 120/66; PULSE 94; TEMP 98.2
== END 2019-04-21 21:34 | disposition left against medical advice (07) | DRG 948 ==
LOC: JER 17:53 → OBSVTOIN 04-20 02:57 → JERBED 04-20 02:57 → J5S 04-20 08:29
PROVIDERS: ADMIT Internal Medicine; ATTEND Family Medicine
PROC: 30233N1 Transfusion of Nonautologous Red Blood Cells into Peripheral Vein, Percutaneous Approach (ICD-10-PCS; principal; 2019-04-20)
DX: G89.18 Other acute postprocedural pain (principal); R60.9 Edema, unspecified; D64.9 Anemia, unspecified; N88.8 Other specified noninflammatory disorders of cervix uteri; K59.00 Constipation, unspecified; R74.8 Abnormal levels of other serum enzymes; N83.201 Unspecified ovarian cyst, right side
CPT/HCPCS: 36415; 36430; 36511; 74177-TC; 76830-TC; 80053; 81003; 82272; 82607; 82728; 83540; 83550; 83605; 84439; 84443; 84703; 85025; 85610; 86850; 86900; 86901; 86922; 87070; 87086; 87205; 87491; 87591; 87661; 93005; 93010; 93970-TC; 97116-GP; 97161-GP; 99285-25; J0131; J7030; P9038; P9058